=== PATIENT | male | born 1990 | race Caucasian/White ===

== ENCOUNTER 2024-09-08 01:15 | Emergency (ER) | payer OTHER ==
--- NOTE | 2024-09-08 02:51 | ED ---
General Adult HPI - General Chief complaint: Alcohol Stated complaint: ETOH Time Seen by Provider: 09/08/24 01:29 Source: patient, EMS Mode of arrival: EMS Limitations: no limitations - History of Present Illness Initial comments: Patient is a 34-year-old male past medical history of alcoholism presenting today from [facility] for alcohol intoxication. He had presented there for alcoholism detox. There patient was noted to have a blood alcohol of 0.19. Per [facility] staff, patient drank a pint of alcohol there and then blew 0.400. Patient states his last drink was at 230 to 4 PM. He currently denies SI or HI. He denies any additional symptoms or concerns. He denies sweatiness, nausea, vomiting, hallucinations, no history of alcohol drawl seizures. Denies chest pain, shortness of breath, or fevers. The patient denies additional complaints - Related Data Allergies Allergy/AdvReac Type Severity Reaction Status Date / Time No Known Allergies Allergy Verified 09/08/24 01:34 Review of Systems ROS Statement: Those systems with pertinent positive or pertinent negative responses have been documented in the HPI. ROS Other: All systems not noted in ROS Statement are negative. Past Medical History Past Medical History: No Reported History History of Any Multi-Drug Resistant Organisms: MRSA Date of last positivie culture/infection: 04/2024 MDRO Source:: left calf Past Surgical History: No Surgical Hx Reported Past Psychological History: No Psychological Hx Reported Smoking Status: Current some day smoker Past Alcohol Use History: Abuse, Daily, Heavy Past Drug Use History: None Reported General Exam - General Exam Comments Initial Comments: PE: CONSTITUTIONAL: [no apparent distress, well appearing] SKIN: [warm, dry, no jaundice, hives or petechiae, no diaphoresis] EYES:[ pupils are equally round, extraocular movements intact without nystagmus, bilateral erythematous conjunctiva without discharge, non-icteric sclera] HENT: [normocephalic, atraumatic, moist mucus membranes, oropharynx clear without exudates] NECK: , [Full range of motion, normal appearance] PULMONARY: [clear to auscultation without wheezes, rhonchi, or rales, normal excursion, no accessory muscle use and no stridor] CARDIOVASCULAR:[ regular rate, rhythm, normal S1 and S2. No appreciated murmurs, rubs or gallops. Strong radial pulses with intact distal perfusion. No lower extremity edema] GASTROINTESTINAL: [soft, active bowel sounds throughout, non-tender, non- distended, no palpable masses, no rebound or guarding. No hepatosplenomegaly] GENITOURINARY: MUSCULOSKELETAL: [Extremities have no gross deformity, no edema, redness, or swelling. No calf swelling ] NEUROLOGIC: [_a/o x 3, GCS 15, intoxicated though normal mentation and speech. Moves all extremities x 4 without motor or sensory deficit, no tremor with hands outstretched] PSYCHIATRIC:[ _normal mood and affect, intoxicated though, thought process is otherwise clear and linear, does not appear to be responding to internal stimuli] Limitations: no limitations Course Vital Signs 09/08/24 09/08/24 01:34 04:41 Temperature 98.2 F 98.9 F Pulse Rate 87 73 Respiratory 16 17 Rate Blood Pressure 142/85 140/98 O2 Sat by Pulse 97 97 Oximetry Medical Decision Making - Medical Decision Making Was pt. sent in by a medical professional or institution (, PA, VIDEO GAMES STORYWRITER, urgent care, hospital, or intermediate...) When possible be specific @ -Sent by [facility] Did you speak to anyone other than the patient for history (EMS, parent, family, police, friend...)? What history was obtained from this source @ -No Did you review nursing and triage notes (agree or disagree)? Why? @ -I reviewed nursing and triage notes Were old charts reviewed (outside hosp., previous admission, EMS record, old EKG, old radiological studies, urgent care reports/EKG's, intermediate records)? Report findings @ -Medical records reviewed-reviewed records/note provided by [facility] stating that patient with heart rate of 124, was intoxicated and seen slipping out of his chair though did not injure his head or sustain injuries. Sent here for alcohol intoxication. Differential Diagnosis (chest pain, altered mental status, abdominal pain women, abdominal pain men, vaginal bleeding, weakness, fever, dyspnea, syncope, headache, dizziness, GI bleed, back pain, seizure, CVA, palpatations, mental health, musculoskeletal)? @Defer diagnose remains rather top considerations include alcohol intoxication, polysubstance abuse, alcohol withdrawal this is not inclusive list EKG interpreted by me (3pts min.). @ -As above X-rays interpreted by me (1pt min.). @ -None done CT interpreted by me (1pt min.). @ -None done U/S interpreted by me (1pt. min.). @ -None done What testing was considered but not performed or refused? (CT, X-rays, U/S, labs)? Why? @Breathlyzer testing was considered however pt already had alcohol breathalyzer done at [facility], pt admits to alcohol use, exam is consistent with alcohol intoxication, would not change current management of pt What meds were considered but not given or refused? Why? @ -None Did you discuss the management of the patient with other professionals (professionals i.e. , PA, VIDEO GAMES STORYWRITER, lab, RT, psych nurse, social science teacher, double end trimmer, teacher, gifts officer, caseworker protective services)? Give summary @ -No Was smoking cessation discussed for >3mins.? @ -No Was critical care preformed (if so, how long)? @ -No Were there social determinants of health that impacted care today? How? (Homelessness, low income, unemployed, alcoholism, drug addiction, transportation, low edu. Level, literacy, decrease access to med. care, long term, rehab)? @ -No Was there de-escalation of care discussed even if they declined (Discuss DNR or withdrawal of care, Hospice)? @ -No What co-morbidities impacted this encounter? (DM, HTN, Smoking, COPD, CAD, Cancer, CVA, ARF, Chemo, Hep., AIDS, mental health diagnosis, sleep apnea, morbid obesity)? alcoholism Was patient admitted / discharged? Hospital course, mention meds given and route, prescriptions, significant lab abnormalities, going to OR and other pertinent info. @ Discharged- this is a pleasant 34-year-old gentleman presenting sent over from [facility] for alcohol intoxication. On my assessment patient is well- appearing, resting comfortably no acute distress. He does not appear to be responding to internal stimuli, he is not diaphoretic, shaky nauseous or vomiting. He is not displaying any signs of alcohol drawl. He is not tachycardic. Denies alcohol withdrawal seizures. Discussed with patient plan for discharge back to [facility] for treatment of alcohol abuse for rehab, to which he was agreeable. Pt will be transported back via sober ride/cab to [facility]. In my medical judgment there is currently no evidence of an immediate life-thre atening or surgical condition. Discharge is therefore indicated at this time. Discharge treatment instructions, follow up instructions, and appropriate emergency department return precautions were discussed with the patient and/or medical decision maker. Patient and/or medical decision maker expressed understanding of and agreed with the treatment plan, follow up instructions, and emergency department return precaution. All patient's and/or medical decision maker's questions were answered. Undiagnosed new problem with uncertain prognosis? @ -No Drug Therapy requiring intensive monitoring for toxicity (Heparin, Nitro, Insulin, Cardizem)? @ -No Were any procedures done? @ -No Diagnosis/symptom? @Alcohol intoxication Acute, or Chronic, or Acute on Chronic? @acute Uncomplicated (without systemic symptoms) or Complicated (systemic symptoms)? @ uncomplicated Side effects of treatment? @ -No Exacerbation, Progression, or Severe Exacerbation? @ -No Poses a threat to life or bodily function? How? (Chest pain, [place], [place], pneumonia, PE, COPD, DKA, ARF, appy, cholecystitis, CVA, Diverticulitis, Homicidal, Suicidal, threat to staff... and all critical care pts) @ -No Disposition Clinical Impression: Alcohol intoxication Disposition: HOME SELF-CARE Condition: Good Instructions (If sedation given, give patient instructions): Alcohol Intoxication (ED) Additional Instructions: Every disease is a spectrum and a small chance still exists that a serious condition could develop, for this reason, please monitor yourself closely for new, changing or worsening symptoms, sweats, shaking, anxiety, nausea, vomiting, seizures, uncontrolled withdrawal symptoms, fever, inability to tolerate/keep down fluids or your medications, inability to follow up with outpatient providers as instructed and should you experience these symptoms or should you have any further concerns for your wellbeing please return to the ED or call 911 immediately. Please return directly to [facility] for further treatment of alcohol abuse recovery. PLEASE call your primary care physician as soon as possible to arrange / discuss plan for followup appointment. Appointment in the next 1-3 days is strongly encouraged if possible. PLEASE let us know here before you leave if there is anything further we can do to be of any assistance. Take care and feel Better! Is patient prescribed a controlled substance at d/c from ED?: No Referrals: None,Stated [Primary Care Provider] - 1-2 days
[2024-09-08 04:43] VITALS: BP 140/98; PULSE 73; RESP 17; TEMP 98.9
== END 2024-09-08 04:43 | disposition home or self-care (01) ==
LOC: EC 01:15
DX: F10.129 Alcohol abuse with intoxication, unspecified (principal); F17.200 Nicotine dependence, unspecified, uncomplicated; Y90.6 Blood alcohol level of 120-199 mg/100 ml
CPT/HCPCS: 99283